=== PATIENT | male | born 1965 | race Caucasian/White ===

== ENCOUNTER 2020-08-28 13:08 | Outpatient (CLI) | payer BC | END 2020-08-28 14:07 | disposition home or self-care (01) | LOC: SLEEP 13:08 | PROVIDERS: ATTEND Otolaryngology Otolaryngology/Facial Plastic Surgery | DX: G47.33 Obstructive sleep apnea (adult) (pediatric) (principal); G47.10 Hypersomnia, unspecified | CPT/HCPCS: G0399 ==